=== PATIENT | female | born 1990 | race Caucasian/White ===

== ENCOUNTER 2019-07-15 14:55 | Emergency (ER) | payer MEDICAID ==
--- NOTE | 2019-07-15 15:20 | EDM.PDOC ---
ED HPI GENERAL MEDICAL PROBLEM - General Chief Complaint: Abdominal Pain Stated Complaint: stomache ache Time Seen by Provider: 07/15/19 15:05 Source of Information: Reports: Patient History Limitations: Reports: No Limitations - History of Present Illness INITIAL COMMENTS - FREE TEXT/NARRATIVE: This patient presents to the ED for evaluation of abdominal pain. She states the pain started about 3 hours ago and "comes and goes." It is located in the middle of her abdomen between umbilicus and xiphoid process. It is sharp and at worst is an 8/10, lasts some minutes and then completely resolves. Her appetite is fine, she is drinking fluids. She has not had any nausea or vomiting. She denies diarrhea and states her last BM was "yesterday." LMP was "2 weeks ago" and she has a Nexplanon. She denies fever, recent illnesses, other concerns or complaints. 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 Denies: Anorexia, Constipation, Diarrhea , Decreased Appetite, Difficulty Swallowing, Nausea, Vomiting Musculoskeletal: Reports: No Symptoms Skin: Reports: No Symptoms Neurological: Reports: Paresthesia ED EXAM, GI/ABD - Physical Exam Exam: See Below Exam Limited By: No Limitations General Appearance: Alert, No Apparent Distress Eyes: Bilateral: Normal Appearance Ears: Normal External Exam Nose: Normal Inspection Neck: Normal Inspection, Full Range of Motion Respiratory/Chest: No Respiratory Distress, Lungs Clear, Normal Breath Sounds, Chest Non-Tender Cardiovascular: Regular Rate, Rhythm GI/Abdominal Exam: Normal Bowel Sounds, Soft, Non-Tender, No Organomegaly, No Distention, Other (tenderness with palpation of middle abdomen between umbilicus and xiphoid) Extremities: Normal Range of Motion Course - Orders/Labs/Meds Orders: Active Orders 24 hr Category Date Time Status Abdomen 1V Flat [CR] Stat Exams 07/15/19 15:09 Taken Labs: Laboratory Tests 07/15/19 07/15/19 Range/Units 15:25 15:26 Urine Color Yellow Urine Appearance Clear (CLEAR) Urine pH 6.0 (5.0-8.0) Ur Specific Reading >= 1.030 (1.003-1.030) Urine Protein Negative (NEGATIVE) mg/dL Urine Glucose (UA) Negative (NEGATIVE) mg/dL Urine Ketones Negative (NEGATIVE) mg/dL Urine Occult Blood Negative (NEGATIVE) Urine Nitrite Negative (NEGATIVE) Urine Bilirubin Negative (NEGATIVE) Urine Urobilinogen 0.2 (0.2-1.0) E.U./dL Ur Leukocyte Esterase Negative (NEGATIVE) Urine HCG, Qual Negative (NEGATIVE) - Radiology Interpretation Free Text/Narrative:: Abdominal Plain Film negative for acute findings. - Re-Assessments/Exams Free Text/Narrative Re-Assessment/Exam: 07/15/19 15:54 This patient presents with abdominal pain as detailed above. A broad differential diagnosis was considered including appendicitis, gall bladder disease, pancreatitis, diverticular disease, bowel obstruction, volvulus, intussusception, gastritis and peptic ulcer disease, gastro intestinal infection , inflammatory bowel disease, peritonitis, kidney stones, UTI, related complications, PID and ovarian cyst, mesenteric lymphadenopathy, IBS. The workup in the ED is at this point negative and there are no focal findings on her exam. No definitive etiology for the patients pain is found at this point and my suspicion of an intraabdominal catastrophe or other worrisome etiology is low. Imaging studies show no acute findings. At this time there is no indication for admission for serial exams and further workup. Patient is hemodynamically stable in the ED. She was discharged to home and instructed to return for fevers greater than 102, increasing pain, other new symptoms develop. Abdominal pain instructions given to patient. Questions were answered Departure - Departure Time of Disposition: 16:00 Disposition: Home, Self-Care 01 Condition: Good Clinical Impression: Abdominal pain - Discharge Information *PRESCRIPTION DRUG MONITORING PROGRAM REVIEWED*: No Instructions: Abdominal Pain, Adult Forms: ED Department Discharge, ED Return to Work/School Form - My Orders Last 24 Hours: My Active Orders 07/15/19 15:09 Abdomen 1V Flat [CR] Stat - Assessment/Plan Last 24 Hours: My Active Orders 07/15/19 15:09 Abdomen 1V Flat [CR] Stat
--- NOTE | 2019-07-15 18:09 | CR ---
DATE OF SERVICE: 07/15/19 CLINICAL DATA: pain UPRIGHT ABDOMEN: The diaphragms are not included on this upright view. I cannot exclude free air. There are surgical clips in the right upper quadrant consistent with prior cholecystectomy. There are scattered air fluid levels in the ascending and transverse colon. It does not appear to be dilated. Colitis should be considered. I cannot completely exclude a developing obstruction or ileus. follow-up imaging is recommended if clinically indicated. No other significant findings. [id number]
== END 2019-07-15 16:00 | disposition home or self-care (01) ==
LOC: LB.ED 14:55
DX: R10.33 Periumbilical pain (principal)
CPT/HCPCS: 74018; 81003; 81025; 99284-25

== ENCOUNTER 2025-06-08 13:37 | Emergency (ER) | payer MEDICAID ==
[2025-06-08] MEDS ORDERED: Sodium Chloride 0.9% 10 ML Syringe FLUSH PRN (13:57)
[2025-06-08 14:36] LABS: BASOPHILS ABSOLUTE AUTO 0.04 K/uL (0.02-0.10); BASOPHILS PERCENT AUTO 0.3 % (0.0-0.5); EOSINOPHILS ABSOLUTE AUTO 0.12 K/uL (0.04-0.40); EOSINOPHILS PERCENT AUTO 1.0 % (1.0-5.0); LYMPHOCYTES ABSOLUTE AUTO 2.27 K/uL (1.50-4.00); LYMPHOCYTES PERCENT AUTO 18.9 % (20.0-40.0); MEAN PLATELET VOLUME 10.9 fL (6.0-10.0); MONOCYTES ABSOLUTE AUTO 1.07 K/uL (0.20-0.80); MONOCYTES PERCENT AUTO 8.9 % (3.0-10.0); NEUTROPHILS ABSOLUTE AUTO 8.50 K/uL (2.00-7.50); NEUTROPHILS PERCENT AUTO 70.9 % (45.0-70.0); PLATELET COUNT,PLT 308 K/uL (150-500); RED BLOOD CELL COUNT 4.70 M/uL (3.80-5.80); RED CELL DISTRIBUTION WIDTH 13.6 % (11.0-16.0); WHITE BLOOD CELL COUNT,WBC 12.0 K/uL (4.0-11.0)
[2025-06-08] MEDS: Ondansetron 4 MG/2 ML SDV IVPUSH ONE (14:38)
[2025-06-08 14:50] LABS: BLOOD UREA NITROGEN,BUN 12 mg/dL (8-26); CARBON DIOXIDE,CO2 19.2 mmol/L (21.0-32.0); CHLORIDE,CL 103 mmol/L (98-107); CREATININE 0.76 mg/dL (0.55-1.02); ESTIMATED GFR 107 mL/min (>60); GLUCOSE RANDOM 103 mg/dL (74-100); POTASSIUM,K 3.5 mmol/L (3.5-5.1); SODIUM,NA 139 mmol/L (136-145)
[2025-06-08] MEDS: Potassium Chloride 20 MEQ Tab.ER PO ONE (15:15)
[2025-06-08 18:06] VITALS: BP 160/102; PULSE 94
[2025-06-09] MEDS ORDERED: Potassium Chloride 10% 20 MEQ/15 ML Soln 15 ML UD Cup PO SCH (08:00)
== END 2025-06-08 17:20 | disposition home or self-care (01) ==
LOC: LB.ED 13:37
DX: K52.9 Noninfective gastroenteritis and colitis, unspecified (principal); J98.4 Other disorders of lung; E86.0 Dehydration; Z79.899 Other long term (current) drug therapy
CPT/HCPCS: 36415; 71046; 80048; 82947; 83605; 85025; 86140; 87040; 96361; 96365; 96374; 99284; 99284-25; A9270-GY; J0456; J2405; J7030; J7050